=== PATIENT | female | born 1970 | race Caucasian/White ===

== ENCOUNTER 2017-02-12 10:47 | Emergency (ER) | payer MEDICAID ==
[~2017-02-12] VITALS: Ht 160 cm; Wt 55.3 kg
[2017-02-12 11:01] VITALS: BP_SYST 116
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
--- NOTE | 2017-02-12 11:05 | NUR ---
BROUGHT BACK TO BED #5 AND REPORT GIVEN TO ROMAN
--- NOTE | 2017-02-12 11:10 | NUR ---
Dr. Wadsworth at bedside to assess pt.
[2017-02-12 12:30] VITALS: BP_SYST 122
--- NOTE | 2017-02-12 12:30 | NUR ---
Patient given written and verbal discharge instructions and verbalizes understanding. ER MD discussed with patient the results and treatment provided. Patient in stable condition. ID arm band removed. Rx of Naprosyn given. Patient educated on pain management and to follow up with PMD. Pain Scale 2/10. Opportunity for questions provided and answered.
== END 2017-02-12 12:30 | disposition home or self-care (01) ==
LOC: SED 10:47
DX: S20.212A Contusion of left front wall of thorax, initial encounter (principal); V19.9XXA Pedal cyclist (driver) (passenger) injured in unspecified traffic accident, initial encounter; Y93.89 Activity, other specified; Y92.89 Other specified places as the place of occurrence of the external cause; Y99.8 Other external cause status
CPT/HCPCS: 71010; 71100; 81025; 99284